=== PATIENT | female | born 1965 | race Caucasian/White ===

== ENCOUNTER 2017-01-09 02:27 | Emergency (ER) | payer OTHER ==
[2017-01-09 03:23] LABS: ALBUMIN 4.3 gm/dL (3.4-5.0); ALKALINE PHOSPHATASE 62 U/L (50-136); ALT/SGPT 18 U/L (3.5-33.9); AST/SGOT 17 U/L (7.04-26.96); BILIRUBIN,TOTAL 0.28 mg/dL (0.0-1.0); BLOOD UREA NITROGEN 9 mg/dL (7-18); CALCIUM 8.8 mg/dL (8.7-10.7); CARBON DIOXIDE 25 mmol/L (21-32); CREATINE KINASE 116 U/L (21-215); CREATININE 0.8 mg/dL (0.6-1.3); GLUCOSE,RANDOM 99 mg/dL (70-99); POTASSIUM 3.7 mmol/L (3.5-5.1); SODIUM 141 mmol/L (136-145); TOTAL PROTEIN 7.1 gm/dL (6.4-8.2)
[2017-01-09 03:25] LABS: BASO % 0.1 % (0.1-1.2); EOS # 0.2 10_X3_uL (0.0-0.4); EOS % 2.2 % (0.7-5.8); GRAN # 4.4 10_X3_uL (1.6-6.1); GRAN % 57.5 % (34.0-71.1); HEMATOCRIT 46.2 % (34-45); HEMOGLOBIN 16.8 g/dL (11.2-15.7); LYMPH # 2.6 10_X3_uL (1.2-3.7); LYMPH % 34.2 % (19.3-51.7); MEAN CORPUSCULAR HGB CONC 36.4 g/dL (32.0-36.0); MEAN CORPUSCULAR VOLUME 92.4 fL (79-95); MEAN PLATELET VOLUME 10.3 fl (7.5-11.5); MONO # 0.5 10_X3_uL (0.2-0.9); PLATELET COUNT 190 x10_3/uL (182-369); RED CELL DISTRIBUTION WIDTH 12.7 % (11.7-14.4); WHITE BLOOD COUNT 7.7 x10_3/uL (4.0-10.0)
[2017-01-09 03:26] LABS: MEAN CORPUSCULAR HEMOGLOBIN 33.6 pg (27.0-33.0)
== END 2017-01-09 04:10 | disposition home or self-care (01) ==
LOC: ER 02:27
PROVIDERS: Internal Medicine
DX: M79.602 Pain in left arm (principal); I10 Essential (primary) hypertension; B40.9 Blastomycosis, unspecified; F17.210 Nicotine dependence, cigarettes, uncomplicated; Z88.8 Allergy status to other drugs, medicaments and biological substances
CPT/HCPCS: 36415; 71010; 80053; 82550; 82553; 85025; 93005; 96374; 96376; 99070; 99283-25